=== PATIENT | female | born 1990 | race Asian ===

== ENCOUNTER 2018-10-26 05:16 | Day surgery (SDC) | payer OTHER ==
[2018-10-25 09:29] VITALS: BMI 17.9
--- NOTE | 2018-10-26 10:29 | HP ---
History & Physical Update - History History: No Change - Physical Physical: No Change - Assessment Assessment: No Change - Plan Plan: No Change (susie 2- agree with h&p from 10/25/18. for LEEP)
[2018-10-26] MEDS ORDERED: ACETAMINOPHEN 325 MG TABLET (FP) PO PRN (11:00)
[2018-10-26] MEDS ORDERED: LACTATED RINGERS SOLUTION 1,000 ML IV SCH ×2 (11:00→11:15)
[2018-10-26] MEDS ORDERED: ONDANSETRON 4 MG/2 ML VIAL IVPUSH PRN (11:08)
[2018-10-26] MEDS ORDERED: oxyCODONE HCL 5 MG TABLET PO PRN ×2 (11:08)
[2018-10-26] MEDS ORDERED: PROPOFOL 20 ML ONE (11:10)
[2018-10-26] MEDS ORDERED: MIDAZOLAM HCL 2 MG/2 ML SINGLE DOSE VIAL ONE (11:10)
[2018-10-26] MEDS ORDERED: SUCCINYLCHOLINE CHLORIDE 200 MG/10 ML SYRINGE ONE (11:10)
--- NOTE | 2018-10-26 11:35 | OP ---
Operative Note - Note: Operative Date: 10/26/18 Pre-Operative Diagnosis: LAURO 2/cervical dysplasia Operation: LEEP Post-Operative Diagnosis: Same as Pre-op Surgeon: Sherrie Woodard Anesthesia: MAC Specimens Removed: Cervical biopsy, endocervical biopsy Estimated Blood Loss (mls): 5 Operative Report Dictated: Yes
--- NOTE | 2018-10-26 13:19 | OP ---
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 PROCEDURE: Loop electrosurgical excision procedure. SURGEON: Sherrie Woodard DO ANESTHESIA: MAC anesthesia administered by Idalia Stern CRNA ESTIMATED BLOOD LOSS: 5 mL SPECIMENS REMOVED: Cervical biopsy and endocervical biopsy. COMPLICATIONS: None. COUNT: Sponge and instrument count correct. DISPOSITION: Safe for PACU. BRIEF HISTORY AND PROCEDURE: Patient is a 28-year-old female who had been seen in the office, had an abnormal Pap smear and upon colposcopy examination, found to have high-grade cervical dysplasia including on her endocervical biopsy. The patient was counseled on her options and signed the consent for a LEEP procedure. The patient was admitted to [facility] on October 26, 2018. Consents for the procedure were reconfirmed. The patient was taken to the operating room and placed in dorsal lithotomy position, given MAC anesthesia. A coated speculum was placed inside the vagina. The cervix was easily visualized and Lugol solution was applied. A large loop was used to remove the cervical biopsy in a single pass. This was sent to Pathology for permanent evaluation and secondary to endocervical findings on colposcopy, a small loop was used to take an endocervical biopsy at this time. The Roller Ball Cautery was used to achieve hemostasis and Monsel solution was applied. Excellent hemostasis was achieved. Everything was removed from the surgical field and the vagina. The patient was awoken from anesthesia and woke up in a stable condition in the PACU after the procedure. SHERRIE WOODARD DO /[id number]
[2018-10-26 14:16] VITALS: BP 101/78; PULSE 68; TEMP 98
--- NOTE | 2018-10-28 16:07 | PATH ---
Surgical Pathology Report Patient Name: SHARAD CHEUNG [facility]. Rec. #: [id number] /Age/Gender: 1990 (Age: 28) / F Account: [id number] Location: [facility] SURGICAL Taken: 10/26/2018 Received: 10/26/2018 Reported: 10/28/2018 Physicians: Sherrie Woodard M.D. Specimen(s) Received A: CERVICAL BIOPSY B: ENDOCERVICAL BIOPSY Clinical History Cervical dysplasia Final Diagnosis A. 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 LOW GRADE SQUAMOUS INTRAEPITHELIAL LESION (LSIL) PRESENT. LSIL FOCALLY PRESENT AT ECTOCERVICAL/CERVICAL SQUAMOUS MARGIN; SURGICAL MARGINS ARE NEGATIVE FOR HIGH GRADE DYSPLASIA. TRANSFORMATION ZONE PRESENT. B. ENDOCERVICAL, LOOP ELECTROSURGICAL EXCISION PROCEDURE (LEEP)/BIOPSY: BENIGN ENDOCERVICAL MUCOSA. NO DYSPLASIA IDENTIFIED. Electronically Signed Ambika Cramer M.D. Addendum Reported: 10/31/2018 Addendum Diagnosis Office of Dr. Woodard informed that significant findings will be faxed (Monica). Ambika Cramer M.D. Gross Description A. Received in formalin labeled "cervical biopsy," is a 1.5 cm in diameter annular, unoriented portion of soft tissue, consistent with a cervical LEEP cone biopsy. The specimen is partially surfaced by a boone, shiny and glistening mucosa. The specimen is inked blue and serially sectioned. The specimen is entirely and sequentially submitted in 4 cassettes. B. Received in formalin labeled "endocervical biopsy," is a 1.5 x 0.6 x 0.2 cm boone, unoriented portion of soft tissue. The specimen is inked blue, serially sectioned and entirely submitted and entirely submitted in one cassette. /10/26/2018 saudi10/26/2018
== END 2018-10-26 14:15 | disposition home or self-care (01) ==
LOC: JASU-SURG 05:16 → EDBD 10:30 → JASU-SURG 14:15
PROVIDERS: ATTEND Obstetrics & Gynecology
PROC: 0UBC7ZX Excision of Cervix, Via Natural or Artificial Opening, Diagnostic (ICD-10-PCS; principal; 2018-10-26 11:00)
DX: D06.0 Carcinoma in situ of endocervix (principal)
CPT/HCPCS: 88307-TC; 94760